=== PATIENT | male | born 1995 | race Caucasian/White ===

== ENCOUNTER → 2016-11-09 | Outpatient (CLI) | payer OTHER ==
--- NOTE | 2016-11-09 15:54 | DX ---
Esophagram Indication: Throat discomfort. Evaluate for reflux disease. COMPARISON: Upper GI dated February 11, 2015. TECHNIQUE: Standard esophagram protocol utilizing thin and thick barium and gas crystals. Fluoroscopy: 3 minutes. Cumulative dose: 15 mGy FINDINGS: The hypopharynx has normal anatomy. The cricopharyngeus muscle completely opens. No esophag eal web. The esophagus has normal caliber, folds and mucosal relief. No hiatal hernia or stricture. E sophageal motility is normal. No gastroesophageal reflux occurred at any point. IMPRESSION: Normal. No esophagitis, stricture or hiatal hernia. No reflux occurred any point througho ut the exam.
== END ==
LOC: FIMAGING 09:08
PROVIDERS: ATTEND Surgery
DX: R07.0 Pain in throat (principal)